=== PATIENT | female | born 1950 | race Caucasian/White ===

== ENCOUNTER 2022-10-13 08:41 | Emergency (ER) | payer OTHER, BC ==
[2022-10-13 09:01] VITALS: BP 154/90; PULSE 75; RESP 16; TEMP 98; BMI 23.0
[2022-10-13] MEDS ORDERED: ACETAMINOPHEN INJECTION 100 ML IVPB ONE (09:39)
[2022-10-13] MEDS ORDERED: ONDANSETRON 4 MG/2 ML VIAL ONE (09:39)
[2022-10-13] MEDS ORDERED: ONDANSETRON 4 MG/2 ML VIAL IVPUSH ONE (09:40)
[2022-10-13] MEDS ORDERED: ACETAMINOPHEN 1000 MG/100 ML BAG IVPB ONE (09:40)
[2022-10-13 10:13] LABS: HEMATOCRIT 47.1 % (32.4-45.2); HEMOGLOBIN 16.3 G/dL (10.7-15.3); MCH 31.6 pg (25.7-33.7); MCHC 34.5 g/dl (32.0-36.0); MEAN CELL VOLUME 91.4 fl (80-96); MEAN PLT VOLUME 8.2 fl (7.5-11.1); PLATELET COUNT 261.3 10^3/uL (134-434); RBC 5.15 10^6/uL (3.60-5.2); RDW 13.4 % (11.6-15.6); WHITE BLOOD COUNT 13.7 10^3/uL (4.0-10.8)
[2022-10-13 10:18] LABS: ALBUMIN 4.7 g/dl (3.4-5.0); BLOOD UREA NITROGEN 10.5 mg/dl (7-18); CALCIUM 9.8 mg/dl (8.5-10.1); CREATININE 0.6 mg/dl (0.6-1.3); POTASSIUM 3.9 mmol/L (3.5-5.1); SGOT/AST 18.8 U/L (15-37); SGPT/ALT 14.3 U/L (7-52); TOT PROT 7.2 g/dl (6.4-8.2)
[2022-10-13 10:35] LABS: PLATELET ESTIMATE ADEQUATE
[2022-10-13 11:56] LABS: BILIRUBIN,TOTAL 0.6 mg/dL (0.2-1)
[2022-10-13 12:19] LABS: EPITHELIAL CELLS FEW /hpf; URINE MUCUS FEW
== END 2022-10-13 12:45 | disposition home or self-care (01) ==
LOC: FER 08:41
PROC: 3E033NZ Introduction of Analgesics, Hypnotics, Sedatives into Peripheral Vein, Percutaneous Approach (ICD-10-PCS; principal; 2022-10-13)
PROC: 3E033GC Introduction of Other Therapeutic Substance into Peripheral Vein, Percutaneous Approach (ICD-10-PCS; 2022-10-13)
DX: R11.2 Nausea with vomiting, unspecified (principal); R10.9 Unspecified abdominal pain; R51.9 Headache, unspecified
CPT/HCPCS: 36415; 80053; 81003; 81015; 84484; 85025; 87086; 87186; 93005; 99284-25